=== PATIENT | female | born 1945 | race Hispanic/Latino ===

== ENCOUNTER 2017-02-25 18:34 | Emergency (ER) | payer OTHER ==
[2017-02-25 18:59] LABS: BASOPHILS % (AUTO) 0.4 % (0.0-5.0); EOSINOPHILS % (AUTO) 1.4 % (0.0-8.0); HEMATOCRIT 37.1 % (36-48); LYMPHOCYTES % (AUTO) 35.2 % (21.0-51.0); MEAN CORPUSCULAR HEMOGLOBIN 29.8 pg (27.0-33.0); MEAN CORPUSCULAR HGB CONC 33.5 g/dL (32.0-36.0); MEAN CORPUSCULAR VOLUME 88.9 fL (79-99); MONOCYTES % (AUTO) 8.6 % (3.0-13.0); NEUTROPHILS % (AUTO) 54.4 % (40.0-77.0); PLATELET COUNT (AUTO) 319 K/uL (130-400); RED BLOOD CELL COUNT(AUTO) 4.17 MIL/uL (4.00-5.50); RED CELL DISTRIBUTION WIDTH 13.5 % (11.0-15.5); WHITE BLOOD COUNT (AUTO) 7.6 K/uL (4.8-10.8)
[2017-02-25] MEDS ORDERED: SODIUM CHLORIDE 0.9% 1000ML 1,000 ML IV ONE (19:05)
[2017-02-25] MEDS ORDERED: ONDANSETRON HCL 4 MG/2 ML VIAL ONE (19:05)
[2017-02-25 19:16] LABS: CREATININE 0.8 mg/dL (0.5-1.5); POTASSIUM 3.4 mmol/L (3.5-5.1)
[2017-02-25 19:21] LABS: ALBUMIN 3.4 g/dL (3.5-5.0); BILIRUBIN,TOTAL 0.7 mg/dL (0.2-1.0); TOTAL PROTEIN, SERUM 7.8 g/dL (6.0-8.3)
[2017-02-25 19:30] LABS: APPEARANCE,URINE Clear (CLEAR); BILIRUBIN,URINE Negative (NEGATIVE); COLOR,URINE Yellow (YELLOW); GLUCOSE, URINE (UA) Negative (NEGATIVE); KETONES,URINE Negative (NEGATIVE); LEUKOCYTE ESTERASE ,URINE Trace (NEGATIVE); NITRATE,URINE Negative (NEGATIVE); OCCULT BLOOD,URINE Negative (NEGATIVE); PH,URINE 5.5 (5.0-8.0); PROTEIN,URINE Negative (NEGATIVE); UROBILINOGEN,URINE 0.2 mg/dL (0.2-1.0)
[2017-02-25 19:36] LABS: BACTERIA,URINE Rare /HPF (None Seen); RBC,URINE 0-1 /HPF (0-1)
[2017-02-25 19:39] LABS: MUCUS,URINE Rare LPF (None Seen); SQUAMOUS EPITHELIAL CELL,UR Few /LPF (0-2)
[2017-02-25] MEDS ORDERED: METOCLOPRAMIDE 10 MG/2 ML VIAL ONE (20:48)
== END 2017-02-25 21:09 | disposition home or self-care (01) ==
LOC: EDH 18:34
DX: R11.0 Nausea (principal); R53.81 Other malaise; I10 Essential (primary) hypertension; Z87.442 Personal history of urinary calculi; Z88.0 Allergy status to penicillin; Z88.8 Allergy status to other drugs, medicaments and biological substances; Z90.49 Acquired absence of other specified parts of digestive tract
CPT/HCPCS: 36415; 80053; 81001; 84484; 85025; 93005; 96361; 96374; 99285; J2405; J2765; J7030

== ENCOUNTER 2017-03-09 12:19 | Emergency (ER) | payer OTHER ==
[2017-03-09 12:54] LABS: BASOPHILS % (AUTO) 0.5 % (0.0-5.0); EOSINOPHILS % (AUTO) 0.7 % (0.0-8.0); HEMATOCRIT 37.3 % (36-48); LYMPHOCYTES % (AUTO) 40.8 % (21.0-51.0); MEAN CORPUSCULAR HEMOGLOBIN 30.2 pg (27.0-33.0); MEAN CORPUSCULAR HGB CONC 33.5 g/dL (32.0-36.0); MEAN CORPUSCULAR VOLUME 90.2 fL (79-99); MONOCYTES % (AUTO) 7.9 % (3.0-13.0); NEUTROPHILS % (AUTO) 50.1 % (40.0-77.0); PLATELET COUNT (AUTO) 199 K/uL (130-400); RED BLOOD CELL COUNT(AUTO) 4.14 MIL/uL (4.00-5.50)
[2017-03-09 13:05] LABS: CARBON DIOXIDE 26 mmol/L (21-32); CHLORIDE 103 mmol/L (101-111); CREATININE 0.9 mg/dL (0.5-1.5); GLOMERULAR FILTR. RATE CALC 66 mL/min (>60); GLUCOSE,RANDOM 118 mg/dL (70-105); POTASSIUM 3.3 mmol/L (3.5-5.1); SODIUM SERUM 140 mmol/L (136-145); UREA NITROGEN, BLOOD 12 mg/dL (7-18)
[2017-03-09 13:18] LABS: ALANINE AMINOTRANSFERASE 22 U/L (12-78); ALBUMIN 3.6 g/dL (3.5-5.0); ASPARTATE AMINOTRANSFERASE 22 U/L (10-37); BILIRUBIN,TOTAL 1.2 mg/dL (0.2-1.0); CREATINE KINASE MB < 0.5 ng/mL (0.5-3.6); CREATINE KINASE, TOTAL 56 U/L (21-232); LIPASE 170 U/L (114-286); TOTAL PROTEIN, SERUM 8.3 g/dL (6.0-8.3)
[2017-03-09] MEDS ORDERED: FAMOTIDINE/PF 20 MG/2 ML VIAL IV ONE (13:41)
[2017-03-09] MEDS ORDERED: MAG HYDROX/AL HYDROX/SIMETH ES 30 ML SUSP UDCUP ONE (13:41)
[2017-03-09] MEDS ORDERED: SUCRALFATE 1 GM TABLET ONE (13:41)
== END 2017-03-09 14:56 | disposition home or self-care (01) ==
LOC: EDH 12:19
DX: R10.13 Epigastric pain (principal); I10 Essential (primary) hypertension; Z88.0 Allergy status to penicillin; Z87.442 Personal history of urinary calculi; Z90.49 Acquired absence of other specified parts of digestive tract
CPT/HCPCS: 36415; 80053; 82550; 82553; 83690; 84484; 85025; 93005; 96374; 99285; J3490

== ENCOUNTER → 2018-09-21 | Outpatient (CLI) | payer OTHER | END | disposition home or self-care (01) | LOC: RAH 12:53 | PROVIDERS: ATTEND Family Medicine | DX: R22.43 Localized swelling, mass and lump, lower limb, bilateral (principal) | CPT/HCPCS: 76882 ==

== ENCOUNTER 2019-03-10 16:55 | Emergency (ER) | payer OTHER ==
[2019-03-10] MEDS ORDERED: NITROGLYCERIN 1GM/1 INCH PACKET TD ONE (17:46)
[2019-03-10] MEDS ORDERED: ONDANSETRON HCL 4 MG/2 ML VIAL ONE (17:46)
[2019-03-10 17:47] LABS: BASOPHILS % (AUTO) 0.7 % (0.0-5.0); EOSINOPHILS % (AUTO) 2.1 % (0.0-8.0); HEMATOCRIT 39.6 % (36-48); LYMPHOCYTES % (AUTO) 41.7 % (21.0-51.0); MEAN CORPUSCULAR HEMOGLOBIN 29.6 pg (27.0-33.0); MEAN CORPUSCULAR HGB CONC 32.6 g/dL (32.0-36.0); MEAN CORPUSCULAR VOLUME 90.8 fL (79-99); NEUTROPHILS % (AUTO) 47.2 % (40.0-77.0); PLATELET COUNT (AUTO) 225 K/uL (130-400); RED BLOOD CELL COUNT(AUTO) 4.36 MIL/uL (4.00-5.50); RED CELL DISTRIBUTION WIDTH 13.9 % (11.0-15.5); WHITE BLOOD COUNT (AUTO) 7.5 K/uL (4.8-10.8)
[2019-03-10] MEDS ORDERED: FAMOTIDINE/PF 20 MG/2 ML VIAL IV ONE (17:47)
[2019-03-10 18:01] LABS: POTASSIUM 4.2 mmol/L (3.5-5.1)
[2019-03-10 18:03] LABS: INR 0.95 (0.85-1.15); PARTIAL THROMBOPLASTIN TIME 25.7 SEC (26.3-35.5)
[2019-03-10 18:05] LABS: ALBUMIN 3.5 g/dL (3.5-5.0); BILIRUBIN,TOTAL 0.7 mg/dL (0.2-1.0); TOTAL PROTEIN, SERUM 8.1 g/dL (6.0-8.3)
[2019-03-10 18:58] LABS: APPEARANCE,URINE Clear (CLEAR); BILIRUBIN,URINE Negative (NEGATIVE); COLOR,URINE Yellow (YELLOW); GLUCOSE, URINE (UA) Negative (NEGATIVE); KETONES,URINE Negative (NEGATIVE); LEUKOCYTE ESTERASE ,URINE Small (NEGATIVE); NITRATE,URINE Negative (NEGATIVE); OCCULT BLOOD,URINE Moderate (NEGATIVE); PROTEIN,URINE Negative (NEGATIVE)
[2019-03-10 19:24] LABS: BACTERIA,URINE None Seen /HPF (None Seen); WBC,URINE 0-1 /HPF (0-1)
[2019-03-10 19:25] LABS: SQUAMOUS EPITHELIAL CELL,UR 0-2 /HPF (0-2)
[2019-03-10] MEDS ORDERED: TRAMADOL HCL 50 MG TABLET ONE (20:49)
[2019-03-10] MEDS ORDERED: SODIUM CHLORIDE 0.9% 1000ML 1,000 ML IV ONE (20:49)
== END 2019-03-10 22:14 | disposition home or self-care (01) ==
LOC: EDH 16:55
DX: N20.1 Calculus of ureter (principal); I10 Essential (primary) hypertension; F41.9 Anxiety disorder, unspecified; Z90.49 Acquired absence of other specified parts of digestive tract; Z98.890 Other specified postprocedural states; Z88.0 Allergy status to penicillin; Z88.6 Allergy status to analgesic agent
CPT/HCPCS: 36415; 71045; 74176; 80053; 81001; 82150; 82550; 83690; 84484; 85025; 85610; 85730; 93005; 96361; 96374; 96375; 99285; J2405; J3490; J7030

== ENCOUNTER → 2019-04-18 | Outpatient (CLI) | payer OTHER ==
[~2019-04-18] MED LIST: DEXL60CA3 PO; LORA-192 PO; METO-391 PO
== END | disposition home or self-care (01) ==
LOC: RAH 12:04
PROVIDERS: ATTEND Urology
DX: N20.0 Calculus of kidney (principal)
CPT/HCPCS: 74018

== ENCOUNTER 2019-04-25 10:30 | Day surgery (SDC) | payer OTHER ==
[2019-04-22 14:20] LABS: BASOPHILS % (AUTO) 0.8 % (0.0-5.0); EOSINOPHILS % (AUTO) 2.5 % (0.0-8.0); HEMATOCRIT 39.1 % (36-48); LYMPHOCYTES % (AUTO) 34.4 % (21.0-51.0); MEAN CORPUSCULAR HEMOGLOBIN 29.6 pg (27.0-33.0); MEAN CORPUSCULAR HGB CONC 31.7 g/dL (32.0-36.0); MEAN CORPUSCULAR VOLUME 93.3 fL (79-99); MONOCYTES % (AUTO) 7.7 % (3.0-13.0); NEUTROPHILS % (AUTO) 54.3 % (40.0-77.0); PLATELET COUNT (AUTO) 188 K/uL (130-400); RED BLOOD CELL COUNT(AUTO) 4.19 MIL/uL (4.00-5.50); RED CELL DISTRIBUTION WIDTH 13.9 % (11.0-15.5); WHITE BLOOD COUNT (AUTO) 6.4 K/uL (4.8-10.8)
[2019-04-22 14:38] LABS: CREATININE 0.9 mg/dL (0.5-1.5); POTASSIUM 4.6 mmol/L (3.5-5.1)
--- NOTE | 2019-04-22 15:40 | NUR ---
DR. COVARRUBIAS PCP FOR PT NOTIFIED OF ELEVATED BLOOD PRESSURE. PER DR COVARRUBIAS PT IS TO TAKE 25MG OF METOPROLOL SUCCINATE PT HOME MED IMMEDIATELY, AND START TAKING WHOLE PILL OF METOPROLOL 50MG DAILY STARTING TOMORROW. PER DR. COVARRUBIAS PT CAN TAKE ADDITION DOSE OF LORAZEPAM NOW ONLY ONE TIME. PT INSTRUCTED AND UNDERSTANDS Addendum: 04/22/19 at 1556 by ZEESHAN GOMEZ RN RN PT INFORMED TO CALL 911 IF SHE HAS ANY PROBLEMS AT HOME.
[2019-04-22 15:41] VITALS: BP 199/105
[2019-04-25] VITALS (19 sets, daily range): BP systolic 102–188; BP diastolic 53–97
[~2019-04-25] VITALS: Ht 152.4 cm; Wt 60.2 kg
[2019-04-25] MEDS ORDERED: LACTATED RINGERS 1000ML 1,000 ML IV ONE (10:50)
[2019-04-25] MEDS: LEVOFLOXACIN 500 MG/D5W 100 ML 100 ML IV SCH ×2 (11:20→12:45)
[2019-04-25] MEDS ORDERED: IOHEXOL-350 50ML VIAL IV ONE (11:47)
[2019-04-25] MEDS ORDERED: LIDOCAINE PF 2% 5ML ABBOJECT ONE (12:54)
[2019-04-25] MEDS ORDERED: PROPOFOL 10 MG/ML 20ML VIAL IV ONE (12:54)
[2019-04-25] MEDS ORDERED: FENTANYL CITRATE PF 50 MCG/1 ML 2ML VIAL ONE (12:55)
[2019-04-25] MEDS ORDERED: GLYCOPYRROLATE 1 MG/5 ML SYRINGE ONE (14:15)
--- NOTE | 2019-04-25 16:00 | NUR ---
HUTTON CATHETER HUTTON CATHETER REMOVED PER DR BTAISTA ORDERS. PATIENT TOLERATED WELL, PATIENT C/O URGENCY TO URINATE. PATIENT ASSISTED TO BATHROOM TO VOID.
[2019-04-25] MEDS ORDERED: PHENAZOPYRIDINE HCL 200 MG TABLET ONE (16:30)
--- NOTE | 2019-04-25 16:35 | NUR ---
DISCHARGE INSTRUCTIONS PROVIDED TO PATIENT'S SISTER. FOLLOW UP APPOINTMENT PROVIDED AND PRESCRIPTIONS PROVIDED WELL.
--- NOTE | 2019-04-25 16:45 | NUR ---
PATIENT DISCHARGED FROM FACILITY VIA WHEELCHAIR AN ASSISTED INTO PRIVATE VEHICLE DRIVEN BY PATIENT'S SISTER.
== END 2019-04-25 16:45 | disposition home or self-care (01) ==
LOC: DAH 10:30
PROVIDERS: ATTEND Urology
DX: N13.2 Hydronephrosis with renal and ureteral calculous obstruction (principal); K21.9 Gastro-esophageal reflux disease without esophagitis; F41.9 Anxiety disorder, unspecified; I10 Essential (primary) hypertension; J44.9 Chronic obstructive pulmonary disease, unspecified; Z88.0 Allergy status to penicillin; Z88.8 Allergy status to other drugs, medicaments and biological substances; Z88.5 Allergy status to narcotic agent; Z79.899 Other long term (current) drug therapy; Z90.49 Acquired absence of other specified parts of digestive tract; Z82.49 Family history of ischemic heart disease and other diseases of the circulatory system
CPT/HCPCS: 36415 ×2; 52356; 74430; 80048; 82360; 85025; 93005; A4215; A4221; A4222; A4223 ×2; A4344; A4510; A4600; A4663; A4930; A6204; A6207; C1758; C1769 ×2; C2617; J1956; J2001; J2704; J3010; J3490; J7120 ×2; Q9967

== ENCOUNTER → 2022-10-22 | Outpatient (CLI) | payer OTHER | END | disposition home or self-care (01) | LOC: RAH 13:35 | PROVIDERS: ATTEND Family Medicine | DX: Z13.6 Encounter for screening for cardiovascular disorders (principal); E78.49 Other hyperlipidemia | CPT/HCPCS: 75571 ==

== ENCOUNTER → 2023-04-03 | Outpatient (CLI) | payer OTHER | END | disposition home or self-care (01) | LOC: RAH 12:31 | PROVIDERS: ATTEND Family Medicine | DX: M19.011 Primary osteoarthritis, right shoulder (principal) | CPT/HCPCS: 73030 ==

== ENCOUNTER → 2023-04-16 | Outpatient (CLI) | payer OTHER | END | disposition home or self-care (01) | LOC: SHCH 15:03 | PROVIDERS: ATTEND Student in an Organized Health Care Education/Training Program | DX: I07.1 Rheumatic tricuspid insufficiency (principal); R07.9 Chest pain, unspecified | CPT/HCPCS: 93306 ==

== ENCOUNTER 2023-05-16 17:30 | Emergency (ER) | payer OTHER ==
[~2023-05-16] VITALS: Ht 149.9 cm; Wt 62.6 kg
[2023-05-16 18:25] LABS: BASOPHILS # (AUTO) 0.04 K/uL (0.00-0.20); BASOPHILS % (AUTO) 0.6 % (0.0-5.0); EOSINOPHILS % (AUTO) 1.6 % (0.0-8.0); HEMATOCRIT 38.2 % (36-48); LYMPHOCYTES # (AUTO) 1.7 K/uL (1.0-4.8); MEAN CORPUSCULAR HEMOGLOBIN 30.9 pg (27.0-33.0); MEAN CORPUSCULAR HGB CONC 33.8 g/dL (32.0-36.0); MEAN CORPUSCULAR VOLUME 91.4 fL (79-99); MONOCYTES # (AUTO) 0.6 K/uL (0.1-1.0); MONOCYTES % (AUTO) 8.6 % (3.0-13.0); NEUTROPHILS # (AUTO) 4.1 K/uL (1.8-7.7); NEUTROPHILS % (AUTO) 63.2 % (40.0-77.0); PLATELET COUNT (AUTO) 176 K/uL (130-400); RED BLOOD CELL COUNT(AUTO) 4.18 MIL/uL (4.00-5.50); RED CELL DISTRIBUTION WIDTH 14.4 % (11.0-15.5); WHITE BLOOD COUNT (AUTO) 6.4 K/uL (4.8-10.8)
[2023-05-16 18:39] LABS: CREATININE 0.9 mg/dL (0.5-1.5)
[2023-05-16 18:40] LABS: ALBUMIN 3.3 g/dL (3.5-5.0); BILIRUBIN,TOTAL 0.9 mg/dL (0.2-1.0); TOTAL PROTEIN, SERUM 7.8 g/dL (6.0-8.3)
[2023-05-16] MEDS: ACETAMINOPHEN 500 MG TABLET PO ONE (19:17)
[2023-05-16 19:20] VITALS: BP 152/76; PULSE 86; RESP 18; O2SAT 98
== END 2023-05-16 21:20 | disposition home or self-care (01) ==
LOC: EDH 17:30
DX: F41.1 Generalized anxiety disorder (principal); I10 Essential (primary) hypertension; E78.00 Pure hypercholesterolemia, unspecified; Z79.899 Other long term (current) drug therapy; Z88.0 Allergy status to penicillin; Z88.4 Allergy status to anesthetic agent; Z88.5 Allergy status to narcotic agent; Z90.49 Acquired absence of other specified parts of digestive tract
CPT/HCPCS: 36415; 80053; 84484; 85025; 93005

== ENCOUNTER → 2023-08-20 | Outpatient (CLI) | payer OTHER | END | disposition home or self-care (01) | LOC: RAH 14:52 | PROVIDERS: ATTEND Family Medicine | DX: M47.816 Spondylosis without myelopathy or radiculopathy, lumbar region (principal); M41.86 Other forms of scoliosis, lumbar region; N20.0 Calculus of kidney; M25.78 Osteophyte, vertebrae; M54.50 Low back pain, unspecified | CPT/HCPCS: 72131 ==

== ENCOUNTER → 2024-12-15 | Outpatient (CLI) | payer OTHER ==
--- NOTE | 2024-12-15 21:40 | HMCIMG ---
EXAM: MR Right Lower Extremity Without IV Contrast, Knee CLINICAL HISTORY: M25.561 ??? Pain in right knee. TECHNIQUE: Multisequence, multiplanar magnetic resonance images of the right knee were obtained without intravenous contrast. Series acquired: 4 - AX T2 - TR: 4794.0 - TE: 99.8 - ET: 21.0 - Thk: 4.0 5 - AX T1 - TR: 695.0 - TE: 16.5 - ET: 4.0 - Thk: 4.0 6 - AX 2D MERGE - TR: 864.0 - TE: 15.1 - ET: 4.0 - Thk: 4.0 7 - COR PD - TR: 2195.0 - TE: 17.2 - ET: 9.0 - Thk: 3.0 8 - COR PD FS - TR: 2519.0 - TE: 17.2 - ET: 8.0 - Thk: 3.0 9 - COR 2D MERGE - TR: 913.0 - TE: 15.3 - ET: 4.0 - Thk: 3.1 10 - SAG PD - TR: 2184.0 - TE: 15.6 - ET: 8.0 - Thk: 3.0 11 - SAG T2 - TR: 4206.0 - TE: 100.9 - ET: 17.0 - Thk: 3.0 CONTRAST: None. COMPARISON: None provided. FINDINGS: LIGAMENTS: Anterior cruciate ligament is intact. Posterior cruciate ligament is intact. Lateral and medial collateral ligaments are intact. TENDONS: Quadriceps, patellar, popliteus, and gastrocnemius tendons are intact with preserved signal intensity. Iliotibial band appears normal. BONES: No acute fracture or aggressive osseous lesion. Mild bone marrow edema/contusion noted along the medial femoral condyle. No subchondral collapse. CARTILAGE: Grade II chondral injury involving the medial tibiofemoral compartment with diffuse chondral thinning and irregular surface fibrillation. Articular cartilage over the lateral compartment and patellofemoral joint is relatively preserved. MENISCI: Degenerative signal changes involving the body and posterior horn of the medial meniscus, without a displaced tear. Lateral meniscus is intact. JOINT SPACE / DEGENERATIVE CHANGES: Diffuse mild osteoarthritis with mild reduction in joint space width and small periarticular osteophytosis, predominantly involving the medial compartment. FLUID: Minimal knee joint effusion with suprapatellar extension. No Dodge???s cyst or loose body. MUSCLES: Normal muscle bulk and signal intensity. No intramuscular edema or atrophy. RETINACULA: Medial and lateral patellar retinacula are intact. IMPRESSION: 1. Grade II chondral injury of the medial tibiofemoral compartment with diffuse chondral thinning and irregular surface fibrillation. 2. Mild bone marrow edema/contusion of the medial femoral condyle without subchondral collapse. 3. Degenerative changes in the body and posterior horn of the medial meniscus without displaced tear. 4. Mild osteoarthritis, predominantly in the medial compartment, with mild reduction in joint space width and small periarticular osteophytosis. 5. Minimal knee joint effusion with suprapatellar extension. 6. Intact anterior and posterior cruciate ligaments, and lateral and medial collateral ligaments. 7. Intact lateral meniscus and relatively preserved articular cartilage over the lateral compartment and patellofemoral joint............ /[place]
== END | disposition home or self-care (01) ==
LOC: RAH 13:59
PROVIDERS: ATTEND Family Medicine
DX: S89.81XA Other specified injuries of right lower leg, initial encounter (principal); M17.11 Unilateral primary osteoarthritis, right knee; M25.761 Osteophyte, right knee; M25.561 Pain in right knee; X58.XXXA Exposure to other specified factors, initial encounter; Y93.89 Activity, other specified; Y92.89 Other specified places as the place of occurrence of the external cause; Y99.8 Other external cause status
CPT/HCPCS: 73721